=== PATIENT | female | born 1970 | race Caucasian/White ===

== ENCOUNTER → 2018-09-05 | Outpatient (CLI) | payer BC ==
[2015-06-27 10:55] VITALS: BP 111/67
--- NOTE | 2018-09-05 12:17 | KCIC ---
Abdominal wall ultrasound, 09/05/2018: HISTORY: Abdominal wall lump The patient could not currently locate/palpate the previously noted lump. The area of reported concern in the anterior abdominal wall was carefully scanned. Normal subcutaneous fatty tissues are seen. No solid mass or unusual fluid collection is evident. IMPRESSION: No significant abnormality is detected. Electronically signed by: Zeeshan Wong MD (09/05/2018 12:13 PM) [facility]
== END | disposition home or self-care (01) ==
LOC: KCIC US 08:50
PROVIDERS: ATTEND Nurse Practitioner
DX: R19.09 Other intra-abdominal and pelvic swelling, mass and lump (principal)
CPT/HCPCS: 76705